=== PATIENT | male | born 1965 | race Caucasian/White ===

== ENCOUNTER 2020-05-06 00:47 | Observation (INO) | payer BC ==
[~2020-05-06] VITALS: Ht 185.4 cm; Wt 102.8 kg
[2020-05-06] VITALS (19 sets, daily range): BP systolic 137–168; BP diastolic 74–99
[~2020-05-06 00:47] MED LIST: ATEN25TA PO; HYDR-4068 PO
[2020-05-06] MEDS ORDERED: LIDOCAINE HCL 2% 20ML ONE (01:33)
[2020-05-06] MEDS ORDERED: TETANUS/DIPHTHERIA TOXOID [ADULT] 0.5 ML VIAL IM ONE (01:41)
[2020-05-06] MEDS ORDERED: OCTYL 2-CYANOACRYLATE 1 EACH TP ONE (01:46)
[2020-05-06 02:50] LABS: BASOPHILS % (AUTO) 0.6 % (0.0-5.0); EOSINOPHILS % (AUTO) 1.7 % (0.0-8.0); HEMATOCRIT 44.2 % (42-54); LYMPHOCYTES % (AUTO) 13.3 % (21.0-51.0); MEAN CORPUSCULAR HEMOGLOBIN 33.3 pg (27.0-33.0); MEAN CORPUSCULAR HGB CONC 35.5 g/dL (32.0-36.0); MEAN CORPUSCULAR VOLUME 93.6 fL (79-99); MONOCYTES % (AUTO) 5.9 % (3.0-13.0); NEUTROPHILS % (AUTO) 78.3 % (40.0-77.0); PLATELET COUNT (AUTO) 150 K/uL (130-400); RED BLOOD CELL COUNT(AUTO) 4.72 MIL/uL (4.50-6.20); WHITE BLOOD COUNT (AUTO) 8.3 K/uL (4.8-10.8)
[2020-05-06 02:59] LABS: POTASSIUM 3.6 mmol/L (3.5-5.1)
[2020-05-06 03:03] LABS: ALBUMIN 3.6 g/dL (3.5-5.0); BILIRUBIN,TOTAL 0.3 mg/dL (0.2-1.0); TOTAL PROTEIN, SERUM 7.5 g/dL (6.0-8.3)
[2020-05-06 03:47] LABS: INR 0.99 (0.85-1.15); PARTIAL THROMBOPLASTIN TIME 27.5 SEC (26.3-35.5); PROTHROMBIN TIME 10.7 SEC (9.6-11.6)
[2020-05-06] MEDS ORDERED: CEFAZOLIN SODIUM 1 GM VIAL ONE (10:48)
[2020-05-06] MEDS ORDERED: LIDOCAINE PF 2% 5ML ABBOJECT ONE (10:49)
[2020-05-06] MEDS ORDERED: PROPOFOL 10 MG/ML 20ML VIAL IV ONE (10:49)
[2020-05-06] MEDS ORDERED: FENTANYL CITRATE PF 50 MCG/1 ML 2ML VIAL ONE (10:50)
[2020-05-06] MEDS ORDERED: CEFAZOLIN SODIUM 1 GM VIAL IRRIG ONE (11:20)
[2020-05-06] MEDS ORDERED: HYDROCODONE/ACETAMINOPHEN 10/325 MG TAB PO PRN (13:30)
[2020-05-07] MEDS ORDERED: ATENOLOL 50 MG TABLET PO SCH (09:00)
== END 2020-05-06 17:00 | disposition home or self-care (01) ==
LOC: EDH 00:47 → INTOOBSV 03:00 → EDHIP 03:00 → 3BH 09:22
PROVIDERS: ADMIT Surgery Plastic and Reconstructive Surgery; ATTEND Surgery Plastic and Reconstructive Surgery
DX: S01.20XA Unspecified open wound of nose, initial encounter (principal); Z20.828 Contact with and (suspected) exposure to other viral communicable diseases; S01.81XA Laceration without foreign body of other part of head, initial encounter; S00.412A Abrasion of left ear, initial encounter; I10 Essential (primary) hypertension; Z79.899 Other long term (current) drug therapy; W20.8XXA Other cause of strike by thrown, projected or falling object, initial encounter; Y93.89 Activity, other specified; Y92.89 Other specified places as the place of occurrence of the external cause
CPT/HCPCS: 11042; 12011; 36415; 71045; 80053; 85025; 85610; 85730; 87426; 93005; 99285; A4930; G0168; G0378 ×13; J0690 ×2; J2001; J2704; J3010; J3490; U0003; 90714

== ENCOUNTER → 2023-12-17 | Outpatient (CLI) | payer BC ==
[~2023-12-17] MED LIST changes: +IOHEXOL 350 MG/ML 100ML INFUS..BTL IV ONE
== END | disposition home or self-care (01) ==
LOC: RAH 09:13
PROVIDERS: ATTEND Internal Medicine Gastroenterology
DX: K57.90 Diverticulosis of intestine, part unspecified, without perforation or abscess without bleeding (principal); M47.816 Spondylosis without myelopathy or radiculopathy, lumbar region; I70.90 Unspecified atherosclerosis; K82.9 Disease of gallbladder, unspecified
CPT/HCPCS: 74178; Q9967

== ENCOUNTER → 2024-09-06 | Outpatient (CLI) | payer BC ==
[~2024-09-06] VITALS: Ht 185.4 cm; Wt 105.7 kg
[~2024-09-06] MED LIST changes: -IOHEXOL 350 MG/ML 100ML INFUS..BTL IV ONE
[2024-09-06 12:52] LABS: CREATININE 0.9 mg/dL (0.5-1.3)
== END | disposition home or self-care (01) ==
LOC: LAB 12:08
PROVIDERS: ATTEND Internal Medicine Gastroenterology
DX: R77.1 Abnormality of globulin (principal)
CPT/HCPCS: 36415; 82565; 84520

== ENCOUNTER 2024-09-08 07:30 | Day surgery (SDC) | payer BC ==
[~2024-09-08] VITALS: Ht 185.4 cm; Wt 105.7 kg
[2024-09-08] VITALS (9 sets, daily range): BP systolic 105–162; BP diastolic 77–95; PULSE 68–86; RESP 12–20; TEMP 96.7–98.1
[2024-09-08] MEDS: 0.9%NACL 1000ML 1,000 ML IV ONE (08:17)
[2024-09-08] MEDS ORDERED: proPOFol 10 MG/ML 20ML VIAL IV ONE (09:30)
== END 2024-09-08 10:32 | disposition home or self-care (01) ==
LOC: ENDO 07:30 → DAH 07:30 → ENDO 10:32
PROVIDERS: ATTEND Internal Medicine Gastroenterology
DX: R93.5 Abnormal findings on diagnostic imaging of other abdominal regions, including retroperitoneum (principal); K73.9 Chronic hepatitis, unspecified; R74.8 Abnormal levels of other serum enzymes; K76.9 Liver disease, unspecified; I10 Essential (primary) hypertension; R77.2 Abnormality of alphafetoprotein; K82.9 Disease of gallbladder, unspecified; Z98.890 Other specified postprocedural states; Z79.899 Other long term (current) drug therapy
CPT/HCPCS: 43242; J7030 ×2; J2704; A4215 ×3; A4223; A4222; A4221; A4663; A4606; 43238; J3490